=== PATIENT | male | born 1945 | race Caucasian/White ===

== ENCOUNTER → 2016-11-19 | Outpatient (CLI) | payer OTHER ==
[~2016-11-19] MED LIST: ASPI-435 PO; ATOR-26 PO; GLIM1TAB2 PO; HYDR25TA4 PO; LOSA100T65 PO; METF1TAB85 PO; PANT1TAB48 PO; TPRSR/100 PO
[2016-11-19 12:16] LABS: ESTIMATED AVERAGE GLUCOSE 169 mg/dl; HA1C FLAG Normal (Normal)
== END | disposition home or self-care (01) ==
LOC: C.LABBFT 07:36
PROVIDERS: ATTEND Internal Medicine
DX: E11.9 Type 2 diabetes mellitus without complications (principal)

== ENCOUNTER → 2017-03-02 | Day surgery (SDC) | payer OTHER ==
[2017-02-17 12:03] VITALS: Ht 172.7 cm; Wt 86.4 kg
[~2017-03-02] VITALS: Ht 172.7 cm; Wt 86.4 kg
[~2017-03-02] MED LIST changes: -ATOR-26 PO; +LIDOCAINE HCL 2% 2 ML VIAL (20MG/ML) ONE; +PROPOFOL IV EMULSION 10 MG/ML 20 ML VIAL IV ONE
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
[2017-03-02 09:30] VITALS: TEMP 36.5
--- NOTE | 2017-03-02 10:02 | GI REPORT ---
Procedure Date: 03/02/2017 9:31 AM Procedure: Colonoscopy Indications: Screening for colorectal malignant neoplasm Medicines: Monitored Anesthesia Care Complications: No immediate complications. Estimated Blood Loss: Estimated blood loss: none. Procedure: Pre-Anesthesia Assessment: - Prior to the procedure, a History and Physical was performed, and patient medications and allergies were reviewed. The patient's tolerance of previous anesthesia was also reviewed. The risks and benefits of the procedure and the sedation options and risks were discussed with the patient. All questions were answered, and informed consent was obtained. Prior Anticoagulants: The patient has taken aspirin, last dose was 2 days prior to procedure. ASA Grade Assessment: III - A patient with severe systemic disease. After reviewing the risks and benefits, the patient was deemed in satisfactory condition to undergo the procedure. After I obtained informed consent, the scope was passed under direct vision. Throughout the procedure, the patient's blood pressure, pulse, and oxygen saturations were monitored continuously. The Scope was introduced through the anus and advanced to the terminal ileum. The colonoscopy was performed without difficulty. The patient tolerated the procedure well. The quality of the bowel preparation was good. The terminal ileum, ileocecal valve, appendiceal orifice, and rectum were photographed. Findings: A 5 mm polyp was found in the transverse colon. The polyp was sessile. The polyp was removed with a hot snare. Resection and retrieval were complete. Multiple small-mouthed diverticula were found in the sigmoid colon. There was evidence of a prior end-to-end colo-colonic anastomosis in the sigmoid colon. This was patent and was characterized by healthy appearing mucosa. The anastomosis was traversed. Non-bleeding internal hemorrhoids were found during retroflexion. The hemorrhoids were small. Impression: - One 5 mm polyp in the transverse colon, removed with a hot snare. Resected and retrieved. - Diverticulosis in the sigmoid colon. - Patent end-to-end colo-colonic anastomosis, characterized by healthy appearing mucosa. - Non-bleeding internal hemorrhoids. Recommendation: - Resume previous diet. - Continue present medications. - Repeat colonoscopy for surveillance based on pathology results. - Return to primary care physician as previously scheduled. Jerome Harris DO 03/02/2017 10:02:27 AM This report has been signed electronically. Note Initiated On: 03/02/2017 9:31 AM I attest to the content of the Intraoperative Record and orders documented therein, exceptions below
--- NOTE | 2017-03-02 10:05 | Discharge Instructions ---
Endoscopy Patient Instructions Date / Procedure(s) Performed Mar 02, 2017. Colonoscopy Allergy Information Coded Allergies: No Known Allergies (Verified , 02/17/17) Discharge Date / Findings Mar 02, 2017. Diverticulosis Internal hemorrhoids Colon polyp Evidence of prior colo-colonic anastomosis Medication Instructions Stopped Medication(s): stopped ASA and Glucophage Tuesday OK to resume all medications today as prescribed Reported Home Medications Medications Dose Route/Sig Max Daily Dose Days Date Category Hctz (Hydrochlorothiazide) 25 Mg Tab 25 Mg PO QAM 02/17/17 Reported Glimepiride 1 Mg Tab 1 Tab PO QAM 02/17/17 Reported Aspirin 81 (Aspirin) 81 Mg Tab 1 Tab PO QAM 10/16/15 Reported Cozaar (Losartan Potassium) 100 Mg Tab 100 Mg PO QAM 10/16/15 Reported Metformin Hcl Er (Metformin Hcl) 500 Mg Tab 4 Tabs PO QAM 10/16/15 Reported Metoprolol Succinate ER (Metoprolol Succinate) 100 Mg Tabcr 1 Tab PO QAM 10/16/15 Reported Protonix (Pantoprazole) 40 Mg Tab 40 Mg PO QAM 10/16/15 Reported Provider Instructions Activity Restrictions - No exercising or heavy lifting for 24 hours. - Do not drink alcohol the day of the procedure. - Do not drive a car or operate machinery until the day after the procedure. - Do not make any important decisions or sign important papers in 24 hours after the procedure. Following Day: - Return to full activity which may include returning to work/school. Diet Start your diet with liquids and light foods (jello, soup, juice, toast). Then eat your usual diet if not nauseated. Treatment For Common After Affects For mild abdominal pain, bloating, or excessive gas: - Rest - Eat lightly - Lie on right side Follow-Up Information Follow-up with Dr. Graham Lock as scheduled Anesthesia Information What You Should Know You have had a procedure that required some medicine to reduce anxiety and discomfort. This treatment is called moderate sedation. After receiving the treatment, you may be sleepy, but you will be able to breathe on your own. The effects of the treatment may last for several hours. Follow these instructions along with Activity/Diet recommendations noted above: * Do NOT do anything where dizziness or clumsiness would be dangerous. * Rest quietly at home today, then you can be up and about tomorrow. * Have a responsible person stay with you the rest of today. * You may have had an I.V. today. If so, you may take the dressing off later today. Recommendations Call your doctor if: * Trouble breathing * Continuous vomiting for more than 24 hours * Temperature above 101 degrees * Severe abdominal pain or bloating * Pain not relieved by pain medicine ordered * There is increased drainage or redness from any incision * A large amount of rectal bleeding greater than 2-3 tablespoons. (If you had a polyp/s removed or have hemorrhoids, a small amount of blood - from the rectum is to be expected.) * You have any unanswered questions or concerns. IN THE EVENT OF A SERIOUS EMERGENCY, GO TO THE NEAREST EMERGENCY ROOM Your discharge instructions were prepared by provider Jerome Harris. Patient Instructions Signature Page Fabian Mayo Patient (or Guardian) Signature/Date: I have read and understand the instructions given to me by my caregivers. Caregiver/RN/Doctor Signature/Date: The above-named patient and/or guardian has received patient instructions on this date. + Original Patient Signature Page (only) stays with chart. Please make copy for patient.
--- NOTE | 2017-03-02 10:18 | Anesthesiology Progress Note ---
Anesthesia Post Op Note Date & Time Mar 02, 2017 at 10:18 Vital Signs Pain Intensity: 0 Vital Signs Past 12 Hours Date Time Temp Pulse Resp B/P (MAP) Pulse Ox O2 Delivery O2 Flow Rate FiO2 03/02/17 10:03 56 18 124/64 (84) 95 Room Air 03/02/17 09:30 36.5 60 20 134/71 (92) 94 Room Air Notes Mental Status: alert / awake / arousable, participated in evaluation Pt Amnestic to Procedure: Yes Nausea / Vomiting: adequately controlled Pain: adequately controlled Airway Patency, RR, SpO2: stable & adequate BP & HR: stable & adequate Hydration State: stable & adequate Anesthetic Complications: no major complications apparent
[2017-03-02 10:32] VITALS: BP 143/78; PULSE 52; O2SAT 96
== END | disposition home or self-care (01) ==
LOC: C.GI 08:56
PROVIDERS: ATTEND Internal Medicine
DX: Z12.11 Encounter for screening for malignant neoplasm of colon (principal); D12.3 Benign neoplasm of transverse colon; K57.30 Diverticulosis of large intestine without perforation or abscess without bleeding; K64.8 Other hemorrhoids; Z98.0 Intestinal bypass and anastomosis status; I10 Essential (primary) hypertension; E78.00 Pure hypercholesterolemia, unspecified; E11.9 Type 2 diabetes mellitus without complications; K21.9 Gastro-esophageal reflux disease without esophagitis; G47.30 Sleep apnea, unspecified; F17.200 Nicotine dependence, unspecified, uncomplicated; Z79.82 Long term (current) use of aspirin; Z79.84 Long term (current) use of oral hypoglycemic drugs; Z79.899 Other long term (current) drug therapy

== ENCOUNTER → 2017-03-23 | Outpatient (CLI) | payer OTHER ==
[~2017-03-23] MED LIST changes: -LIDOCAINE HCL 2% 2 ML VIAL (20MG/ML) ONE; -PROPOFOL IV EMULSION 10 MG/ML 20 ML VIAL IV ONE
[2017-03-23 12:12] LABS: BASO % 0.4 %; BASO ABS # 0.04 K/uL (0-0.2); COMPLETE YES; EOS % 2.9 %; HEMATOCRIT 39.5 % (42-52); IG% 0.2 %; LYMPH % 25.9 %; LYMPH ABS # 2.81 K/uL (1.2-3.4); MEAN CELL VOLUME 92.3 fL (80-100); MEAN CORPUSCULAR HEMOGLOBIN 29.7 pg (25-34); MEAN CORPUSCULAR HGB CONC 32.2 g/dl (32-36); MEAN PLATELET VOLUME 9.9 fL (7.4-10.4); MONO % 6.5 %; NEUT % 64.1 %; PLATELET COUNT 276 K/uL (130-400); RED BLOOD COUNT 4.28 M/uL (4.7-6.1); WHITE BLOOD COUNT 10.84 K/uL (4.8-10.8)
[2017-03-23 12:24] LABS: URINE APPEARANCE CLEAR (CLEAR); URINE BILIRUBIN NEG (NEG); URINE COLOR YELLOW; URINE EPITHELIAL CELL AUTO 0-5 /lpf (0-5); URINE NITRITE NEG (NEG); URINE SPECIFIC GRAVITY 1.014 (1.000-1.030); UROBILINOGEN NEG (NEG); ZZUR CULT IF INDIC CLEAN CATCH NO
[2017-03-23 12:33] LABS: MANUAL MICROSCOPIC REQUIRED? NO; REVIEW REQ? NO
[2017-03-23 13:58] LABS: ESTIMATED AVERAGE GLUCOSE 151 mg/dl; HA1C FLAG Normal (Normal)
== END | disposition home or self-care (01) ==
LOC: C.LABBFT 07:28
PROVIDERS: ATTEND Internal Medicine
DX: E11.9 Type 2 diabetes mellitus without complications (principal)

== ENCOUNTER → 2017-03-29 | Outpatient (CLI) | payer OTHER ==
[2017-03-29 12:47] LABS: LYME DISEASE AB IGG NEG (NEG); LYME DISEASE AB IGM NEG (NEG)
--- NOTE | 2017-04-05 07:10 | CODING QUERY MEDICAL NECESSITY ---
SUPPORTING DIAGNOSIS NEEDED A supporting diagnosis is required for the test/procedure performed on this patient in order for us to be reimbursed by the patient's insurance. Please provide a supporting diagnosis for the following test/procedure listed below next to the test name along with your signature. *If there is no additional diagnosis for this patient that would support the following test/procedure please document that below next to the test/procedure. Test(s)/Procedure(s) that require a supporting diagnosis: * ([id number]) VITAMIN D ASSAY DIAGNOSIS: DATE OF SERVICE: 03/29/17 Provider Signature: Date: Thank you John Real [facility] Information Management Once completed, please kindly fax back to [phone] For questions please call [phone]
== END | disposition home or self-care (01) ==
LOC: C.LABBFT 11:01
PROVIDERS: ATTEND Internal Medicine
DX: R53.83 Other fatigue (principal)

== ENCOUNTER → 2017-08-10 | Outpatient (CLI) | payer OTHER ==
[~2017-08-10] MED LIST changes: +PANT1TAB3 PO; -PANT1TAB48 PO
[2017-08-10 12:28] LABS: BASO % 0.5 %; BASO ABS # 0.06 K/uL (0-0.2); EOS ABS # 0.36 K/uL (0-0.5); HEMOGLOBIN 13.5 g/dL (14.0-18.0); IG# 0.03 K/uL (0.00-0.02); LYMPH % 23.6 %; LYMPH ABS # 2.88 K/uL (1.2-3.4); MEAN CORPUSCULAR HEMOGLOBIN 30.6 pg (25-34); MEAN CORPUSCULAR HGB CONC 32.9 g/dl (32-36); MEAN PLATELET VOLUME 10.1 fL (7.4-10.4); MONO ABS # 0.73 K/uL (0.11-0.59); NEUT % 66.7 %; NEUT ABS # 8.13 K/uL (1.4-6.5); PLATELET COUNT 273 K/uL (130-400); RED CELL DISTRIBUTION WIDTH CV 14.4 % (11.5-14.5); WHITE BLOOD COUNT 12.19 K/uL (4.8-10.8)
[2017-08-10 12:59] LABS: HEMOGLOBIN A1C 7.2 % (4.5-5.6)
[2017-08-10 13:04] LABS: ALBUMIN 3.5 gm/dl (3.4-5.0); ALT/SGPT 18 U/L (12-78); BLOOD UREA NITROGEN 15 mg/dl (7-18); CALCIUM 9.7 mg/dl (8.5-10.1); CARBON DIOXIDE 27 mmol/L (21-32); CHOLESTEROL 123 mg/dl (0-200); CREATININE 1.04 mg/dl (0.60-1.40); GLUCOSE 150 mg/dl (70-99); POTASSIUM 4.2 mmol/L (3.5-5.1); SODIUM 138 mmol/L (136-145)
[2017-08-10 13:07] LABS: ALKALINE PHOSPHATASE 100 U/L (45-117); AST/SGOT 12 U/L (15-37); LDL CHOLESTEROL CALCULATED 43 mg/dl; TOTAL PROTEIN 6.9 gm/dl (6.4-8.2)
== END | disposition home or self-care (01) ==
LOC: C.LABBFT 07:29
PROVIDERS: ATTEND Internal Medicine
DX: E11.9 Type 2 diabetes mellitus without complications (principal); E78.5 Hyperlipidemia, unspecified; D64.9 Anemia, unspecified

== ENCOUNTER → 2017-12-15 | Outpatient (CLI) | payer OTHER ==
[2017-12-15 12:30] LABS: BASO % 0.5 %; BASO ABS # 0.05 K/uL (0-0.2); EOS % 3.2 %; EOS ABS # 0.33 K/uL (0-0.5); HEMATOCRIT 38.7 % (42-52); HEMOGLOBIN 13.2 g/dL (14.0-18.0); IG# 0.03 K/uL (0.00-0.02); LYMPH % 25.2 %; LYMPH ABS # 2.59 K/uL (1.2-3.4); MEAN CELL VOLUME 90.4 fL (80-100); MEAN CORPUSCULAR HEMOGLOBIN 30.8 pg (25-34); MEAN CORPUSCULAR HGB CONC 34.1 g/dl (32-36); MEAN PLATELET VOLUME 10.1 fL (7.4-10.4); MONO % 6.7 %; MONO ABS # 0.69 K/uL (0.11-0.59); NEUT % 64.1 %; PLATELET COUNT 236 K/uL (130-400); RED CELL DISTRIBUTION WIDTH CV 13.9 % (11.5-14.5); RED CELL DISTRIBUTION WIDTH SD 46.1 fL (36.4-46.3); WHITE BLOOD COUNT 10.29 K/uL (4.8-10.8)
[2017-12-15 12:57] LABS: HEMOGLOBIN A1C 7.8 % (4.5-5.6)
== END | disposition home or self-care (01) ==
LOC: C.LABBFT 07:27
PROVIDERS: ATTEND Internal Medicine
DX: D72.829 Elevated white blood cell count, unspecified (principal); E11.9 Type 2 diabetes mellitus without complications

== ENCOUNTER 2019-11-17 15:13 | Inpatient (IN) ==
[2019-11-17] MEDS ORDERED: ONDANSETRON INJ 2 MG/ML 2 ML VIAL IV STA (15:30)
[2019-11-17] MEDS ORDERED: MoRPHine SULFATE 10 MG/ML CARP/VIAL IV STA ×2 (15:30→16:12)
[2019-11-17] MEDS ORDERED: SODIUM CHLORIDE 0.9% 1000ML 1,000 ML IV ONE (15:30)
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
[2019-11-17 15:58] LABS: iSTAT Creatinine 0.9 mg/dl (0.6-1.3); iSTAT Hemoglobin 13.9 g/dl (14.0-18.0); iSTAT Ionized Calcium 1.18 mmol/l (1.12-1.32); iSTAT Potassium 3.6 mmol/L (3.3-5.0)
[2019-11-17] MEDS ORDERED: IOVERSOL 100ml IV PRN (15:59)
[2019-11-17 16:08] LABS: INR 1.1 (0.9-1.1); Partial Thromboplastin Ratio 1.1; Partial Thromboplastin Time 30.4 Seconds (21.0-31.0)
[2019-11-17 16:11] LABS: Alanine Aminotransferase 17 U/L (12-78); Albumin Level 3.2 gm/dl (3.4-5.0); Aspartate Aminotransferase 15 U/L (15-37); BUN Creatinine Ratio 11.7 (10-20); Blood Urea Nitrogen 12 mg/dl (7-18); Calcium 9.1 mg/dl (8.5-10.1); Carbon Dioxide 26 mmol/L (21-32); Chloride 106 mmol/L (98-107); Creatinine Clr Calc Pharmacy 60.9 ml/min; Est GFR (African American) 82.6; Est GFR (Non-African American) 71.2; Glucose 160 mg/dl (70-99); Lipase 24 U/L (73-393); Potassium 3.6 mmol/L (3.5-5.1); Sodium 136 mmol/L (136-145)
[2019-11-17 16:16] LABS: Albumin Globulin Ratio 0.8 (0.9-2); Alkaline Phosphatase 103 U/L (45-117); Bilirubin,Total 0.9 mg/dl (0.2-1); Total Protein 7.2 gm/dl (6.4-8.2); Troponin I < 0.015 ng/ml (0-0.045)
[2019-11-17 16:22] LABS: Basophils # (auto) 0.04 K/uL (0-0.2); Basophils % (auto) 0.3 %; Eosinophils # (auto) 0.11 K/uL (0-0.5); Eosinophils % (auto) 0.8 %; Hematocrit (blood only) 40.5 % (42-52); Hemoglobin 13.9 g/dL (14.0-18.0); Immature Granulocytes # (auto) 0.04 K/uL (0.00-0.02); Immature Granulocytes % (auto) 0.3 %; Lymphocytes # (auto) 1.81 K/uL (1.2-3.4); Lymphocytes % (auto) 13.9 %; Mean Corpuscular Hemoglobin 31.4 pg (25-34); Mean Corpuscular Hgb Conc 34.3 g/dL (32-36); Mean Corpuscular Volume 91.6 fL (80-100); Mean Platelet Volume 9.9 fL (7.4-10.4); Monocytes % (auto) 4.6 %; Neutrophils # (auto) 10.39 K/uL (1.4-6.5); Neutrophils % (auto) 80.1 %; Platelet Count 214 K/uL (130-400); RDW Coefficient of Variation 12.6 % (11.5-14.5); RDW Standard Deviation 42.4 fL (36.4-46.3); Red Blood Count 4.42 M/uL (4.7-6.1); White Blood Count 12.99 K/uL (4.8-10.8)
--- NOTE | 2019-11-17 16:41 | CT Scan Report ---
CT OF THE ABDOMEN AND PELVIS WITH CONTRAST CLINICAL HISTORY: Severe abdominal pain. Recent GI bleed. COMPARISON STUDY: None. TECHNIQUE: Following IV administration of 93 mL of Optiray-320, axial images of the abdomen and pelvi s were obtained from the lung bases to the proximal femurs. Images were reviewed in the axial, sagitt al, and coronal planes. IV contrast was administered without complication. Automated exposure contro l was utilized for the study. A dose lowering technique was utilized adhering to the principles of A WERO. CT DOSE: 318.73 mGy.cm FINDINGS: Imaged portions of the lower chest demonstrate multiple irregular solid nodules that measur e up to 1.4 cm. A moderate sized hiatal hernia is present. There are are several locules of extralumi nal gas within the upper abdomen, specifically adjacent to the left hemidiaphragm and within the mese ntery. Mesenteric infiltration is noted. Note is made of moderate pancreatic ductal dilatation with p ancreatic glandular atrophy. Ill-defined pancreatic head mass measures approximately 3.1 x 2.4 cm. Th e soft tissue may extend toward the urbano hepatis. There is resultant severe narrowing of the main po rtal vein as well as encasement of portions of the celiac axis. There is no biliary ductal dilatation . There is no pericholecystic infiltration. There is no evidence for a bowel obstruction. Extensive s igmoid diverticulosis is noted. Apparent colonic wall thickening is likely due to underdistention. Th ere is no extraluminal gas within the pelvis. Note is made of a 3.1 cm infrarenal abdominal aortic an eurysm without evidence for rupture. There is no hydronephrosis. Multiple suspected renal cysts are n oted. Several subcentimeter renal lesions are too small to characterize. No suspicious hepatic lesion s are present. A subcentimeter lateral segment hepatic lesion favors a cyst. The spleen and adrenal g lands are unremarkable. Right hip arthroplasty is noted. There is old posttraumatic deformity within the pelvis. A few small suspected peritoneal implants are noted. IMPRESSION: 1. A few punctate foci of extraluminal gas within the upper abdomen. The source for this extraluminal gas is not apparent on this exam. Mild nonspecific mesenteric infiltration which may be related to s evere narrowing of the main portal vein. 2. Findings highly suggestive of pancreatic adenocarcinoma involving the head and neck of the pancrea s with encasement portions of the celiac axis and severe narrowing of the main portal vein. Multiple suspected pulmonary metastases. Suspected tiny peritoneal implants. 3. 3.1 cm infrarenal abdominal aortic aneurysm. 4. Extensive colonic diverticulosis. Sigmoid colon wall thickening is likely due to underdistention h owever acute diverticulitis cannot be excluded on this exam. ACT 112: Negative or not required by law. Electronically signed by: Neo Doss M.D. 11/17/2019 4:40 PM
[2019-11-17] MEDS ORDERED: PIPERACILL/TAZOBAC CONSULT ACTIVE PRN (16:44)
[2019-11-17] MEDS ORDERED: PIPERACILLIN/TAZOBACTAM 4.5 GM/120 ML BAG IV ONE (16:44)
--- NOTE | 2019-11-17 17:19 | Surgery Consultation ---
Date of Consultation November 17, 2019 Assessment & Plan (1) Pancreatic cancer: pt is a 73 year-old male who presents to Er with 4 days history upper and back pain, with some bloody stool, IMP: pancreatic cancer, GI bleeding, recommend to transfer [facility] for further diagnosis and treatment, D/W ER attending, History of Present Illness History of Present Illness CHIEF COMPLAINT: Abdominal pain HPI: Patient is a 73-year-old male who presents the ER for severe abdominal pain. He notes 4 days ago he had another EGD which they took a biopsy. Since then he has been having severe pain which has been worsening. Describes as a 7 out of 10. He notes it will get worse. Any palpation or touching of his abdomen significantly worsens the pain. Rest does improve it slightly. He notes that they gave him a pain shot but that has not been helping. He notes that he has gone to the bathroom about 15 times today and notes the past 3-5 bowel movements have been pure blood. He notes about a quarter of a cup each time. Denies any chest pain or shortness of breath. No dysuria urgency or frequency. I ( Chichi Motta MD ) got a call for consult abdominal pain, I reviewed pt's H/P , labs, CT scan with pt, now pt has no abdominal pain , pt had pancreatic mass biopsy 4 days ago at [facility]. pt denies has any new bloody stool, ROS: See above HPI for pertinent positives & negatives. A total of 10 systems reviewed and were otherwise negative. PAST MEDICAL HISTORY: See Below PAST SURGICAL HISTORY: See Below FAMILY HISTORY: See Below SOCIAL HISTORY: See Below HOME MEDICATIONS: See Below ALLERGIES: See Below Allergies Allergy/AdvReac Type Severity Reaction Status Date / Time No Known Drug Allergies Allergy Verified 11/17/19 16:00 Home Medications Home Medications Medication Instructions Recorded Confirmed Type aspirin [Aspir-81] 81 mg PO QAM 04/30/18 10/30/19 History metoprolol succinate 100 mg PO QAM 04/30/18 10/05/19 History cholecalciferol (vitamin D3) 50 4,000 units PO DAILY tab 06/11/19 10/05/19 History mcg (2,000 unit) tablet nitroglycerin 0.4 mg sublingual 0.4 mg SL Q5M PRN #25 tab 06/11/19 10/05/19 Rx tablet insulin syringe-needle U-100 1 mL #100 ea 08/29/19 Rx 30 gauge x 1/2" blood sugar diagnostic #100 ea 09/11/19 Rx clopidogrel 75 mg PO QAM 09/18/19 10/05/19 History ferrous sulfate 325 mg PO QAM 09/18/19 10/05/19 History hydrochlorothiazide 25 mg PO QAM 09/18/19 10/05/19 History isosorbide mononitrate 30 mg PO QAM 09/18/19 10/05/19 History losartan 100 mg PO QAM 09/18/19 10/05/19 History metformin 2,000 mg PO QAM 09/18/19 10/05/19 History insulin human U-100 NPH-regulr See Rx Instructions SQ BIDM #40 ml 10/04/19 10/05/19 Rx 70-30 mix 100 unit/mL subcutaneous susp lancets #100 ea 10/04/19 Rx pantoprazole 40 mg tablet,delayed 40 mg PO QAM 10/30/19 10/30/19 History release rosuvastatin 5 mg PO QAM 11/17/19 11/17/19 History Patient History Social History Preferred Language: Kazakh Communication Ability: Effective Hearing Ability: Normal Stave And Bolt Equalizer Required: No Beliefs That Will Affect Care: None marital status details: Current Living Situation: Spouse current occupational status: retired Feels Safe at Home: Yes Smoking Status: Current every day smoker Tobacco Type: cigarettes ; Cigarettes Per Day: 15 ; Second Hand Exposure: No ; Hx Alcohol Use: No Hx Substance Use: No caffeine: Yes Seatbelt Use: always Review of Systems Review of Systems: All systems reviewed & are unremarkable except as noted in HPI & below Constitutional: as per Subjective / HPI Eyes: as per Subjective / HPI Ear, Nose, Mouth, Throat: as per Subjective / HPI Respiratory: as per Subjective / HPI Cardiovascular: as per Subjective / HPI Additional Comments: CAD, AAA Gastrointestinal: pancreatic cancer Integumentary: as per Subjective / HPI Neurologic: as per Subjective / HPI Psychiatric: as per Subjective / HPI Endocrine: as per Subjective / HPI Physical Exam Constitutional: WD/WN, vitals as above well developed and well nourished Eyes: PERRL, conjunctivae normal, anicteric sclerae ENMT: external ear and nose normal, oropharynx normal Neck: trachea midline, no thyromegaly Respiratory: normal respiratory effort, lungs clear to auscultation Cardiovascular: RRR, no murmur, no edema Rate/Rhythm: regular rate and regular rhythm Gastrointestinal (Abdomen): Percussion/Palpation: abdomen soft mild tenderness at RUQ, no rebound pain, BS +, no distend Musculoskeletal: no cyanosis or clubbing, extremities motor strength 5/5 Skin: no rashes, warm and dry Neurologic: patellar DTR's 2+ bilat, sensation intact Psychiatric: A+Ox3, euthymic affect Results & Data Vital Signs (Past 12 Hours) Vital Signs Temp Pulse Pulse Resp BP BP Pulse Ox 11/17/19 16:44 60 18 152/69 H 98 11/17/19 16:13 65 16 158/93 H 98 11/17/19 15:54 95 11/17/19 15:19 36.4 C L 78 18 136/82 98 Laboratory Results Abnormal lab results 11/17/19 11/17/19 11/17/19 Range/Units 15:36 15:36 15:46 WBC 12.99 H (4.8-10.8) K/uL RBC 4.42 L (4.7-6.1) M/uL Hgb 13.9 L (14.0-18.0) g/dL POC Hgb 13.9 L (14.0-18.0) g/dl Hct 40.5 L (42-52) % POC Hct 41 L (42-52) % Immature Gran # (Auto) 0.04 H (0.00-0.02) K/uL Neut # (Auto) 10.39 H (1.4-6.5) K/uL Phillips # (Auto) 0.60 H (0.11-0.59) K/uL POC Total CO2 23 L (24-31) mEq/l Glucose 160 H (70-99) mg/dl POC Glucose (other) 161 H (70-99) mg/dl Albumin 3.2 L (3.4-5.0) gm/dl Albumin/Globulin Ratio 0.8 L (0.9-2) Lipase 24 L (73-393) U/L Diagnostic Findings CT DOSE: 318.73 mGy.cm FINDINGS: Imaged portions of the lower chest demonstrate multiple irregular solid nodules that measure up to 1.4 cm. A moderate sized hiatal hernia is present. There are are several locules of extraluminal gas within the upper abdomen, specifically adjacent to the left hemidiaphragm and within the mesentery. Mesenteric infiltration is noted. Note is made of moderate pancreatic ductal dilatation with pancreatic glandular atrophy. Ill-defined pancreatic head mass measures approximately 3.1 x 2.4 cm. The soft tissue may extend toward the urbano hepatis. There is resultant severe narrowing of the main portal vein as well as encasement of portions of the celiac axis. There is no biliary ductal dilatation. There is no pericholecystic infiltration. There is no evidence for a bowel obstruction. Extensive sigmoid diverticulosis is noted. Apparent colonic wall thickening is likely due to underdistention. There is no extraluminal gas within the pelvis. Note is made of a 3.1 cm infrarenal abdominal aortic aneurysm without evidence for rupture. There is no hydronephrosis. Multiple suspected renal cysts are noted. Several subcentimeter renal lesions are too small to characterize. No suspicious hepatic lesions are present. A subcentimeter lateral segment hepatic lesion favors a cyst. The spleen and adrenal glands are unremarkable. Right hip arthroplasty is noted. There is old posttraumatic deformity within the pelvis. A few small suspected peritoneal implants are noted. IMPRESSION: 1. A few punctate foci of extraluminal gas within the upper abdomen. The source for this extraluminal gas is not apparent on this exam. Mild nonspecific mesenteric infiltration which may be related to severe narrowing of the main portal vein. 2. Findings highly suggestive of pancreatic adenocarcinoma involving the head and neck of the pancreas with encasement portions of the celiac axis and severe narrowing of the main portal vein. Multiple suspected pulmonary metastases. Suspected tiny peritoneal implants. 3. 3.1 cm infrarenal abdominal aortic aneurysm. 4. Extensive colonic diverticulosis. Sigmoid colon wall thickening is likely due to underdistention however acute diverticulitis cannot be excluded on this exam.
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
[2019-11-17] MEDS ORDERED: PANTOprazole 80 MG in DEXTROSE 5% 100 ML IV SCH (19:00)
[2019-11-17] MEDS: PANTOprazole 40 MG in DEXTROSE 5% 100 ML IV SCH (19:40)
[2019-11-17] MEDS ORDERED: MoRPHine SULFATE 2 MG/ML CARP IV PRN (20:07)
[2019-11-17] MEDS ORDERED: GLUCAGON FOR INJ 1 MG VIAL SQ PRN (20:07)
[2019-11-17] MEDS ORDERED: GLUCOSE 10 TABS/TUBE PO PRN (20:07)
[2019-11-17] MEDS ORDERED: CARBOHYDRATES FOR HYPOGLYCEMIA PO PRN (20:07)
[2019-11-17] MEDS ORDERED: GLUCOSE 40% GEL 15 GM TUBE PO PRN (20:07)
[2019-11-17] MEDS ORDERED: DEXTROSE 50% 50 ML SYRINGE IV PRN (20:07)
--- NOTE | 2019-11-17 21:19 | Communication Note ---
Date of Service: November 17, 2019 Pt reports he continues to have 6-7/10 abdominal pain minimally improved with 0.5mg morphine IV. On exam abdominal diffusely tender without rigidity. Per pt pain is in the same area and feels similar to his admitting pain, reports that his pain medicine helps a little for ~30 minutes before coming back. he has been recommended for transfer to [facility] for additional management by surgical team. On chart review pt has a history of GIB and pancreatic ca, on admission required 14mg IV morphine for pain control. Added scaled morphine analgesia (2-4mg IV based on pain score) and discussed with nurse to perform an abdominal assessment prior to dosing and call provider if any signs of worsening acute abdomen including rigidity develop. VSS at time of assessment.
[2019-11-17] MEDS: D5NSS + 20MEQ KCL 20 MEQ/1,000 ML BAG IV SCH (21:22)
[2019-11-17] MEDS: MoRPHine SULFATE 4 MG/ML 1 ML CARP\\VIAL IV PRN (21:30)
[2019-11-17 22:07] LABS: Hematocrit (blood only) 36.1 % (42-52); Hemoglobin 12.1 g/dL (14.0-18.0)
[2019-11-17] MEDS: INSULIN ASPART 100 UNITS/ML 3 ML PEN SC SCH (22:45)
[2019-11-17] MEDS: PIPERACILLIN/TAZOBACTAM 3.375 GM in DEXTROSE 5% 100 ML IV SCH (22:46)
[2019-11-18] MEDS: PANTOprazole 40 MG in DEXTROSE 5% 100 ML IV SCH ×5 (00:44→19:51)
[2019-11-18] MEDS: MoRPHine SULFATE 4 MG/ML 1 ML CARP\\VIAL IV PRN ×4 (01:58→21:02)
[2019-11-18] MEDS: PIPERACILLIN/TAZOBACTAM 3.375 GM in DEXTROSE 5% 100 ML IV SCH ×3 (05:27→21:02)
[2019-11-18] MEDS: D5NSS + 20MEQ KCL 20 MEQ/1,000 ML BAG IV SCH ×3 (05:28→21:02)
[2019-11-18 06:05] LABS: Basophils # (auto) 0.04 K/uL (0-0.2); Basophils % (auto) 0.5 %; Eosinophils # (auto) 0.28 K/uL (0-0.5); Eosinophils % (auto) 3.6 %; Hematocrit (blood only) 35.5 % (42-52); Hemoglobin 11.9 g/dL (14.0-18.0); Immature Granulocytes # (auto) 0.01 K/uL (0.00-0.02); Immature Granulocytes % (auto) 0.1 %; Lymphocytes # (auto) 1.71 K/uL (1.2-3.4); Lymphocytes % (auto) 21.9 %; Mean Corpuscular Hemoglobin 31.1 pg (25-34); Mean Corpuscular Hgb Conc 33.5 g/dL (32-36); Mean Corpuscular Volume 92.7 fL (80-100); Mean Platelet Volume 9.4 fL (7.4-10.4); Monocytes # (auto) 0.51 K/uL (0.11-0.59); Monocytes % (auto) 6.5 %; Neutrophils # (auto) 5.25 K/uL (1.4-6.5); Neutrophils % (auto) 67.4 %; Platelet Count 149 K/uL (130-400); RDW Coefficient of Variation 12.8 % (11.5-14.5); RDW Standard Deviation 43.5 fL (36.4-46.3); Red Blood Count 3.83 M/uL (4.7-6.1)
[2019-11-18] MEDS: INSULIN ASPART 100 UNITS/ML 3 ML PEN SC SCH ×3 (08:24→21:03)
[2019-11-18] MEDS: MoRPHine SULFATE 2 MG/ML CARP IV PRN ×2 (08:26→16:21)
[2019-11-18] MEDS ORDERED: Nursing to Pharmacy Communication ONE ×2 (09:10→14:56)
[2019-11-18] MEDS ORDERED: INSULIN ASPART 100 UNITS/ML 3 ML PEN SC SCH (12:00)
--- NOTE | 2019-11-18 12:01 | Surgery Progress Note ---
Date of Service pt feels much better, no significant abdominal pain, no fever, November 18, 2019 Assessment & Plan (1) Pancreatic cancer: pt is a 73 year-old male who presents to Er with 4 days history upper and back pain, with some bloody stool, IMP: pancreatic cancer, GI bleeding, recommend to transfer [facility] for further diagnosis and treatment, D/W ER attending, 11/18/2019 11:59AM doing better, no abdominal pain, most likely the pain is caused by pancreatic tumor, pt can be discharged today, F/U his [facility] surgeon for pancreatic mass biopsy, sign off today, please call with questions, thanks, Review of Systems Constitutional: as per Subjective / HPI Eyes: as per Subjective / HPI Ear, Nose, Mouth, Throat: as per Subjective / HPI Respiratory: as per Subjective / HPI Cardiovascular: as per Subjective / HPI Additional Comments: CAD, AAA Gastrointestinal: pancreatic cancer Integumentary: as per Subjective / HPI Neurologic: as per Subjective / HPI Psychiatric: as per Subjective / HPI Endocrine: as per Subjective / HPI Physical Exam Constitutional: WD/WN, vitals as above well developed and well nourished Eyes: PERRL, conjunctivae normal, anicteric sclerae ENMT: external ear and nose normal, oropharynx normal Neck: trachea midline, no thyromegaly Respiratory: normal respiratory effort, lungs clear to auscultation Cardiovascular: RRR, no murmur, no edema Rate/Rhythm: regular rate and regular rhythm Gastrointestinal (Abdomen): Percussion/Palpation: abdomen soft NT, ND, BS + Musculoskeletal: no cyanosis or clubbing, extremities motor strength 5/5 Skin: no rashes, warm and dry Neurologic: patellar DTR's 2+ bilat, sensation intact Psychiatric: A+Ox3, euthymic affect Results & Data Vital Signs (Past 12 Hours) Vital Signs Temp Pulse Pulse Resp BP Pulse Ox 11/18/19 11:00 36.5 C 56 L 132/72 97 11/18/19 07:33 52 L 11/18/19 07:25 36.6 C 61 18 131/62 97 11/18/19 03:15 36.5 C 53 L 20 118/68 95
--- NOTE | 2019-11-18 22:30 | Hospitalist Progress Note ---
Date of Service November 18, 2019 Assessment & Plan (1) Acute GI bleeding: likely related to perf from EGD on 11/12 ([facility]) noted on CTAP Gen surg eval in ED, planning to monitor for now Hb gradually decreasing, but clinically he has no longer had hematoquezia. Surgeon recommended either transfer or discharge. Patient currently is clinically stable will monitor for 24 hours and recheck hemoglobin in AM. Protonix drip (2) Pancreatic cancer: Ongoing work up Having issues with pain control States oxycodone is not helping at all and causing constipation Patient continues to require multiple doses of morphine. (3) CAD (coronary artery disease): aspirin/plavix s/p stent on 05/2019 Holding given above will likely restart plavix and continue to hold aspirin. (4) Diabetes mellitus: SSI PRN A1c 8.7 (5) Hypertension: Holding home meds (6) Hyperlipidemia: Holding home meds (7) Tobacco abuse: Has been working towards cessation, down to less than 1/2ppd Declines need for patch (8) Sleep apnea: States "that's resolved" No current tx (9) DVT prophylaxis: SCDs given above Admission and Anticipated Discharge Date Admission Date: November 17, 2019 Subjective 73 yo male reports feeling well this morning. However, after initiating his lunch, he had some pain in his abdomen. Patient had episode of heamtoquezia prior to arriving to the hospital. He states this has not been the case here. Review of Systems Review of Systems: All systems reviewed & are unremarkable except as noted in HPI & below Physical Exam Physical Exam: Constitutional: WD/WN, vitals as above Eyes: normal visual monroy by confrontation and + anicteric sclerae Neck: normal visual inspection and trachea midline Respiratory: normal respiratory effort, lungs clear to auscultation Cardiovascular: Rate/Rhythm: regular rate and regular rhythm Gastrointestinal (Abdomen): Inspection/Auscultation: + abdomen distended Percussion/Palpation: + abdomen tender and abdomen soft, no signs of peritonitis Musculoskeletal: Head/Neck/Chest: normocephalic and head atraumatic negative for edema, peripheral pulses intact Skin: no rashes, warm and dry Neurologic: awake; not confused Speech / Cognition: normal speech Psychiatric: A+Ox3, euthymic affect Results & Data Results & Data ([facility]) Vital Signs (Past 12 Hours) Vital Signs Temp Pulse Pulse Resp BP Pulse Ox 11/18/19 18:57 36.9 C 70 18 135/64 98 11/18/19 15:06 58 L 11/18/19 14:46 36.7 C 58 L 20 148/77 H 98 11/18/19 11:00 36.5 C 56 L 132/72 97 PG Care Time/CCT Total # of Minutes Spent Total Time Spent with Patient: Total time spent is greater than 50% in coordination of care (as documented) at patient's floor/unit and/or counseling patient: Coding Level of Care Code 57785 Subseq Hosp Care Lvl 3 Diagnoses Acute GI bleeding K92.2 Pancreatic cancer C25.9 CAD (coronary artery disease) I25.10 Diabetes mellitus E11.9 Hypertension I10 Hypertension type: essential hypertension Hyperlipidemia E78.5 Tobacco abuse Z72.0 Sleep apnea G47.30 DVT prophylaxis Z29.9 Time Spent (min) 35 (1) Hypertension Hypertension type: essential hypertension Qualified Code(s): I10 - Essential (primary) hypertension
[2019-11-19] MEDS: PANTOprazole 40 MG in DEXTROSE 5% 100 ML IV SCH ×5 (00:38→21:25)
[2019-11-19] MEDS: MoRPHine SULFATE 2 MG/ML CARP IV PRN ×5 (00:42→20:14)
[2019-11-19] MEDS: MoRPHine SULFATE 4 MG/ML 1 ML CARP\\VIAL IV PRN ×2 (03:08→08:23)
[2019-11-19] MEDS: D5NSS + 20MEQ KCL 20 MEQ/1,000 ML BAG IV SCH ×3 (04:55→20:17)
[2019-11-19 05:55] LABS: Estimated Average Glucose 203 mg/dl; Hemoglobin A1C 8.7 % (4.5-5.6)
[2019-11-19] MEDS: PIPERACILLIN/TAZOBACTAM 3.375 GM in DEXTROSE 5% 100 ML IV SCH (06:04)
[2019-11-19 06:27] LABS: Creatinine Clr Calc Pharmacy 58.1 ml/min; Est GFR (Non-African American) 67.3
[2019-11-19] MEDS: INSULIN ASPART 100 UNITS/ML 3 ML PEN SC SCH ×4 (08:27→20:18)
[2019-11-19 10:14] LABS: Basophils # (auto) 0.03 K/uL (0-0.2); Basophils % (auto) 0.4 %; Eosinophils # (auto) 0.19 K/uL (0-0.5); Eosinophils % (auto) 2.8 %; Hematocrit (blood only) 34.4 % (42-52); Hemoglobin 11.6 g/dL (14.0-18.0); Immature Granulocytes # (auto) 0.01 K/uL (0.00-0.02); Immature Granulocytes % (auto) 0.1 %; Lymphocytes # (auto) 1.46 K/uL (1.2-3.4); Lymphocytes % (auto) 21.2 %; Mean Corpuscular Hemoglobin 31.2 pg (25-34); Mean Corpuscular Hgb Conc 33.7 g/dL (32-36); Mean Corpuscular Volume 92.5 fL (80-100); Mean Platelet Volume 9.8 fL (7.4-10.4); Monocytes # (auto) 0.44 K/uL (0.11-0.59); Monocytes % (auto) 6.4 %; Neutrophils # (auto) 4.76 K/uL (1.4-6.5); Neutrophils % (auto) 69.1 %; Platelet Count 142 K/uL (130-400); RDW Coefficient of Variation 12.9 % (11.5-14.5); RDW Standard Deviation 43.5 fL (36.4-46.3); Red Blood Count 3.72 M/uL (4.7-6.1); White Blood Count 6.89 K/uL (4.8-10.8)
[2019-11-19] MEDS ORDERED: fentaNYL 12 MCG/HR TDSY TD SCH (10:45)
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
[2019-11-19] MEDS: CLOPIDOGREL BISULFATE 75 MG TAB PO SCH (11:35)
[2019-11-19] MEDS: POLYETHYLENE (MIRALAX) 17 GM PACK PO SCH (11:36)
[2019-11-19] MEDS: CHECK FENTANYL PATCH PLACEMENT SCH ×2 (15:58→23:52)
[2019-11-19] MEDS: AMOXICILLIN/CLAVULANATE 875 MG TAB PO SCH (16:01)
--- NOTE | 2019-11-19 22:50 | Hospitalist Progress Note ---
Date of Service November 19, 2019 Assessment & Plan (1) Acute GI bleeding: likely related to perf from EGD on 11/12 ([facility]) noted on CTAP Gen surg eval in ED, planning to monitor for now Hb gradually decreasing, but clinically he has no longer had hematoquezia. Will monitor for another day, GI consulted, no further intervention at this time. Surgeon recommended either transfer or discharge. Protonix drip. Will continue antibiotics to continue a course 7 days, given the free air in the CT scan and unknown origin. transitioned zosyn to augmentin. (2) Pancreatic cancer: Ongoing work up Having issues with pain control Main reason why patient will not be discharged today, will need to get pain under control. Placed on fentanyl patch. hopefully, this decreases frequency of morphine. (3) CAD (coronary artery disease): aspirin/plavix s/p stent on 05/2019 restarted plavix (on 11/19) due to concern over stent closing. D/W GI, they are agreeable. Will hold ASA. 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 (4) Diabetes mellitus: SSI PRN A1c 8.7 (5) Hypertension: Holding home meds (6) Hyperlipidemia: Holding home meds (7) Tobacco abuse: Has been working towards cessation, down to less than 1/2ppd Declines need for patch (8) Sleep apnea: States "that's resolved" No current tx (9) DVT prophylaxis: SCDs given above Admission and Anticipated Discharge Date Admission Date: November 17, 2019 Subjective Patient continues to have periumbilical and right flank abdominal pain. He states it is not related with his eating and is essentially constant as it occurs through. He states his home pain medications do not help. Review of Systems Review of Systems: All systems reviewed & are unremarkable except as noted in HPI & below Physical Exam Physical Exam: Constitutional: WD/WN, vitals as above Eyes: normal visual monroy by confrontation and + anicteric sclerae Neck: normal visual inspection and trachea midline Respiratory: normal respiratory effort, lungs clear to auscultation Cardiovascular: Rate/Rhythm: regular rate and regular rhythm Gastrointestinal (Abdomen): Inspection/Auscultation: + abdomen distended Percussion/Palpation: + abdomen tender near umbilicus and on the right side, and abdomen soft, no signs of peritonitis; no RUQ tenderness Musculoskeletal: Head/Neck/Chest: normocephalic and head atraumatic negative for edema, peripheral pulses intact Skin: no rashes, warm and dry Neurologic: awake; not confused Speech / Cognition: normal speech Psychiatric: A+Ox3, euthymic affect Results & Data Results & Data ([facility]) Vital Signs (Past 12 Hours) Vital Signs Temp Pulse Pulse Resp BP BP Pulse Ox 11/19/19 19:26 36.6 C 63 18 182/67 H 165/85 H 100 11/19/19 15:49 58 L 11/19/19 15:08 37.0 C 61 20 169/70 H 100 11/19/19 12:34 36.6 C 59 L 18 162/68 H 98 PG Care Time/CCT Total # of Minutes Spent Total Time Spent with Patient: Total time spent is greater than 50% in coordination of care (as documented) at patient's floor/unit and/or counseling patient: Coding Level of Care Code 56015 Subseq Hosp Care Lvl 3 Diagnoses Acute GI bleeding K92.2 Pancreatic cancer C25.9 CAD (coronary artery disease) I25.10 Diabetes mellitus E11.9 Hypertension I10 Hypertension type: essential hypertension Hyperlipidemia E78.5 Tobacco abuse Z72.0 Sleep apnea G47.30 DVT prophylaxis Z29.9 Time Spent (min) 35 (1) Hypertension Hypertension type: essential hypertension Qualified Code(s): I10 - Essential (primary) hypertension
[2019-11-20] MEDS: PANTOprazole 40 MG in DEXTROSE 5% 100 ML IV SCH ×3 (02:15→14:26)
[2019-11-20] MEDS: MoRPHine SULFATE 2 MG/ML CARP IV PRN ×3 (02:15→10:14)
[2019-11-20] MEDS: D5NSS + 20MEQ KCL 20 MEQ/1,000 ML BAG IV SCH ×2 (04:06→14:26)
[2019-11-20 07:11] LABS: Creatinine Clr Calc Pharmacy 64.6 ml/min; Est GFR (African American) 88.8; Est GFR (Non-African American) 76.6
[2019-11-20 07:38] LABS: Hematocrit (blood only) 34.4 % (42-52); Hemoglobin 12.1 g/dL (14.0-18.0); Mean Corpuscular Hemoglobin 32.5 pg (25-34); Mean Corpuscular Hgb Conc 35.2 g/dL (32-36); Mean Corpuscular Volume 92.5 fL (80-100); Platelet Count 139 K/uL (130-400); RDW Coefficient of Variation 12.7 % (11.5-14.5); Red Blood Count 3.72 M/uL (4.7-6.1)
[2019-11-20] MEDS: AMOXICILLIN/CLAVULANATE 875 MG TAB PO SCH (08:41)
[2019-11-20] MEDS: CLOPIDOGREL BISULFATE 75 MG TAB PO SCH (08:42)
[2019-11-20] MEDS: POLYETHYLENE (MIRALAX) 17 GM PACK PO SCH (08:42)
[2019-11-20] MEDS: CHECK FENTANYL PATCH PLACEMENT SCH (08:42)
[2019-11-20] MEDS: INSULIN ASPART 100 UNITS/ML 3 ML PEN SC SCH ×2 (08:43→12:24)
--- NOTE | 2019-11-20 10:14 | Gastroenterology Progress Note ---
Date of Service November 20, 2019 Assessment & Plan (1) Acute GI bleeding: Rectal bleeding likely been by hemorrhoidal or other outlet bleeding (in light of timing with constipation and passing a firm BM). Because it has stopped, would defer repeat endoscopy. Would consider colonoscopy if further rectal bleeding occurs. (2) Pancreatic cancer: FNA positive for adeno carcinoma. Will message Dr. Epps's office (oncology) notifying them of pt's anticipated dc today and ask for ABEL rescheduling of appt. (3) Constipation: Recommend BID Miralax and use Dulcolax if no BM in 24 hrs. Admission and Anticipated Discharge Date Admission Date: November 17, 2019 Supervising Physician Co-Signing Physician Notes Attg add: Late entry for pt: I interviewed and examined pt, reviewed chart and labs. Pt with cessation of rectal bleeding. No further questions. Subjective Mr. Mayo is a 73-year-old male with 3 cm pancreatic neck adenocarcinoma, CT here on admission with question lung mets and new small peritoneal implants. Underwent EUS in [place] with FNA pancreas and celiac plexus block on 11/12. Prelim path with adenocarcinoma. He was admitted on 11/16 for rectal bleeding. No bleeding after arrival. Hb Stable. BN normal. Pain much better controlled today. Pt sitting up on side of bed, taking notes. Tells me he doesn't want chemo and doesn't want to be a burden. Willing for surgery. Initial onc eval appt pending (was yesterday but missed appt due to admission). Review of Systems Review of Systems: ROS: Gen: Denies weakness, no fevers, + weight loss Eyes: No eye redness, or pain, no recent vision changes Resp: No SOB, no cough Cardio: No palpitations/irregular beats, no chest pain GI: See HPI, No nausea/vomiting : Denies pain on urination Skin: No jaundice, itching or new rashes Physical Exam Constitutional: WD/WN, vitals as above + thin Eyes: PERRL, conjunctivae normal, anicteric sclerae ENMT: external ear and nose normal, oropharynx normal Neck: trachea midline, no thyromegaly Respiratory: normal respiratory effort, lungs clear to auscultation Cardiovascular: RRR, no murmur, no edema Gastrointestinal (Abdomen): Inspection/Auscultation: abdomen normal to inspection; abdomen not distended Percussion/Palpation: + abdomen tender (diffusely, improved compared to yesterday) and abdomen soft Musculoskeletal: no cyanosis or clubbing, extremities motor strength 5/5 Skin: no rashes, warm and dry no jaundice Neurologic: PERRL, EOMI, accommodation nl, no face palsy, no dysarthria Psychiatric: A+Ox3, euthymic affect Lymphatic: no cervical or axillary lymphadenopathy Results & Data ([facility]) Vital Signs (Past 12 Hours) Vital Signs Temp Pulse Pulse Resp BP Pulse Ox 11/20/19 07:41 36.5 C 62 20 169/69 H 93 11/20/19 07:16 66 11/20/19 03:27 36.5 C 64 19 137/62 97 11/20/19 00:00 53 L 11/19/19 22:52 36.7 C 62 18 155/76 H 98
[2019-11-20 11:42] VITALS: PULSE 102; TEMP 97.9; O2SAT 91
[2019-11-20 13:04] VITALS: BP 182/67
--- NOTE | 2019-11-20 17:13 | Discharge Summary ---
Date of Service November 20, 2019 Admission HPI Per Admitting Provider 73 y/o M c/o abd pain and BRBPR. Pt states he had an EGD on 11/12 at [facility] for ongoing work up of pancreatic cancer. He states that he has had abd pain and BRBPR since that time. He states his pain and bleeding are getting worse. He has had about 15 bowel movements yesterday and today, the last few of which were all blood. He has not passed any blood since coming to the ED. He had morphine in the ED and this is helping his pain. Pt has been able to eat with this. He states that his appetite is generally good, but he has lost 25 lbs in the last 8 months. He states his general abd pain has been getting worse over the last 2 months. He was started on oxycodone but this is not helping at all and until he started passing blood, was having worsening constipation. Pt denies fever, SOB, chest pain, n/v LE pain or swelling. This was pt's third EGD. He denies issues with the prior 2 EGDs. Pt was seen in the ED by gen surg who feels it best to monitor pt overnight. Principal Diagnosis post procedural pancreatic pain / free air (clinically improving) Discharge Exam vitals noted aao pleasant nad heent nc at mmm breathing unlabored no accessory muscles good effort no respiratory distress no conversational dyspnea abd soft nd nt no masses ext no cyanosis Discharge Data Allergies Allergy/AdvReac Type Severity Reaction Status Date / Time No Known Drug Allergies Allergy Verified 11/17/19 16:00 Consultations 11/17/19 17:03 Consult General Surgery Stat 11/17/19 17:28 ED Decision to Admit Stat 11/17/19 17:37 ED Decision to Admit Stat 11/17/19 20:07 Consult Case Management - Discharge Planning Routine Consult General Surgery Routine 11/18/19 15:58 Consult Gastroenterology Routine 11/19/19 10:16 Consult Gastroenterology Routine 11/20/19 12:18 Consult Health Information Management Routine Ordered Studies 11/17/19 15:30 CT abd pelvis IV con only Stat Hospital Course (1) Acute GI bleeding: given no decompensation from peritonitis, given no hemodynamic instability, given no drop in Hgb, and given that bleeding quickly resolved - agree w GI more suspicious that this was more likely hemorrhoidal than UGI -resolved, Hgb stable. stable for home -bowel regimen Free air present on admission likely from biopsy - seen by GI and surgery - initially with concern on situation and possibly requiring transfer --> but stabilized so quickly and pain resolved. treated with zosyn --> augmentin - finish out course of augmentin, otherwise outpt f/u (2) Pancreatic cancer: biopsy returned as adenocarcinoma (per GI), PET done (per pt, although i am unable to directly access results) and CT here concerning for invasion and mets (both lung and peritoneal) -had ellie discussions about this with pt - and that more than likely treatment would be in a palliative model and discussed what we usually see with progression and end-of-life issues with pancreatic cancer (he inquired about [facility] - and i placed referral in process through their multidisciplinary pancreatic team triage since there could certainly be trials or cutting-edge modalities not readily available elsewhere, although d/w pt given CT findings i sadly doubt this will be the case) -answered all questions to the best of my ability; offered to call family since visitors are not allowed due to COVID19 pandemic, but he related "that's my job" -offered empathy and support as best as the situation would allow; to have outpt eval and discuss treatment options w oncology kait ---> pain control w fentanyl patch and PO dilauded (had hydrocodone at home but noted it was not helping and was causing constipation --> change to PO dilauded, not to take both) ---bowel regimen with miralax (see instructions) (3) CAD (coronary artery disease): stenting 06/12 - currently on dual antiplatelets - since bleeding resolved and most likely hemorrhoidal - can continue home regimen (4) Diabetes mellitus: A1c 8.7 (5) Hypertension: home on home meds (6) Hyperlipidemia: continue home meds (7) Tobacco abuse: Has been working towards cessation, down to less than 1/2ppd Declines need for patch (8) Sleep apnea: has no current outpatient tx (9) DVT prophylaxis: SCDs given above Total Time Total Time Spent Total Time Spent (In Minutes): >30 Discharge Plan Discharge Items Patient Disposition: Home - Self-Care Reason For Visit: PERF S/P EGD Discharge Diagnosis: abdominal pain - see below Activity: Resume your previous activity Non-emergency contact: Primary Care Provider and Oncologist Call non-emergency contact if: you have any medication questions, your symptoms worsen, your pain is not controlled and your pain is worsening Follow-up/Referrals: Jonathan Lock MD [Primary Care Provider] - Mirna Epps MD [Hospitalist] - 11/21/19 12:45 pm (Please, follow up at [facility] with Dr. Epps on TuesdayNovember 20 at 12:45 pm. *The office is located at [address] [place] [address] in [place]. If you need to change this appointment, call the office at [phone].) Diet: Carb Consistent or DM2 Addtl Attending Provider Instructions: abdominal pain -this appears to have been related to the biopsy as well as surrounding inflamm ation and possibly mild infection, and fortunately it has gotten better well. we had you on IV antibiotics initially and switched to oral - which has gone well - and we will complete a 10 day course of antibiotics with the augmentin (amoxicillin clavulanate) that you're on right now -- next dose tonight -because the pain also likely relates to the cancer itself, we'll continue with a pain regimen to try to help quell and stay ahead of what you're feeling: -fentanyl (duragesic) - this is a patch with a very potent pain medicine in it. right now we've got you at the lowest dose (12mcg) -- this can be increased if you need. it is a patch that stays on for 72 hours before changing it, so it's best to write the date on the patch when you put it on so that you don't forget. it often takes a patch or so until the medication truly "gets up to speed" so relief may increase from this over the next day or two -in addition to the patch, we'll use an oral pain medicine (dilauded, hydromorphone) that you can take up to every four hours as needed for pain that is on top of what the patch is able to cover - it's a pretty potent medication, so we'll start at a 2mg dosing and see how that works - if it's not enough, then Dr Lock can increase it to 4mg if you need. THIS IS REPLACING THE OXYCODONE THAT YOU SAID WAS NOT HELPING AT ALL - PLEASE DO NOT TAKE BOTH IN THE SAME 24 HOUR PERIOD A RISK OF ACCIDENTAL OVERDOSE WOULD BE QUITE HIGH!! ---->narcotics all tend to be pretty constipating, so i would recommend a proactive approach in this regard - use miralax (polyethylene glycol) - which is a potent stool softener - to a goal of having one bowel movement a day. a "typical dose" of one capful (17 grams) is basically on the low-end of the spectrum (contrasted with about 12 capfuls in a row being like a bowel prep for a colonoscopy) -- most people on chronic narcotic regimens will find themselves in the neighborhood of 3 capfuls a day, [id number]. as a reasonable rule, dose today's amount based on yesterday's bowel movement; and also if you've taken 5 capfuls in a day without any bowel movement it would be time to call Dr Lock for further instructions -while the fentanyl and hydromorphone are the "big guns" as far as pain goes, people will often get more relief than they'd expect out of a steady dosing of tylenol (acetaminophen) 500mg to 650mg three times a day (since your liver is not inflamed you could safely take as much as 2000mg of acetaminophen in a 24hr period to assist in pain control) -for now since you had the bleeding when you first arrived, we'd recommend holding off on any pain medicines that have a blood-thinner quality to them (ie aspirin as well as any anti-inflammatory such as ibuprofen, alleve, naproxen, et c) -- as time goes by if there is no recurrence of bleeding and you need something else as an "assist" in pain control it is possible that an anti- inflammatory could be introduced with physician guidance and oversight pancreatic cancer -unfortunately as we discussed, with the information i have available (pasted in below for you to be able to have easy access to, and also on the patient portal) things look quite worrisome. after we talked, i was able to learn from gastroenterology that the biopsy done from the endoscopic ultrasound did show an adenocarinoma (the most expected finding for a pancreatic cancer). when there is a proven pancreatic cancer with CT findings showing invasion of the cancer around local blood vessels (where the CT references extension towards the urbano hepatis and narrowing of the portal veins and encasement of the celiac axis) and more distant spread (where the CT references suspected pulmonary metastases and peritoneal implants) it is very concerning that things are invasive enough that "cure" is unlikely - and treatment will more than likely be geared more towards a palliative (buy time, alleviate symptoms) approach. I do not have access to the PET scan as of this writing, but i suspect it likely shows findings similar to what we are seeing on your CT scan. as we discussed, there is a lot that can be done at this point, but the biggest questions will center on what should be done (ie what has the best chances of giving you benefit more than harm) -- i suspect that the oncologist will talk with you about the pro's and con's of different chemotherapy type options, and that radiation therapy likely would be recommended as well. realizing that unless they see things completely differently than what i am able to see, i would recommend you make your decisions in light of what sounds the best to you in an unfortunately terrible situation. Because this is an area of constant research, and there will always be new de velopments that we aren't always immediately abreast of, I have started the referral process (you're in the triage phase right now) with [facility] multidisciplinary pancreatic team --> I have asked that all your tests/studies be faxed to them ([phone]) --- we don't have direct access to the PET scan or biopsy results in this computer record system, so I give you the fax number to help facilitate things with the [facility] as well. they said that a triage member would call you to discuss next steps about 24-48 hours after they have all the information, but if you feel at all like things are "in limbo" the pancreatic team main number is [phone] CT scan report (again, also available on the [facility] portal; i would suspect your PET scan and biopsy results should be on the [facility] patient portal as well) CT OF THE ABDOMEN AND PELVIS WITH CONTRAST CLINICAL HISTORY: Severe abdominal pain. Recent GI bleed. COMPARISON STUDY: None. TECHNIQUE: Following IV administration of 93 mL of Optiray-320, axial images of the abdomen and pelvis were obtained from the lung bases to the proximal femurs. Images were reviewed in the axial, sagittal, and coronal planes. IV contrast was administered without complication. Automated exposure control was utilized for the study. A dose lowering technique was utilized adhering to the pr inciples of [place]. CT DOSE: 318.73 mGy.cm FINDINGS: Imaged portions of the lower chest demonstrate multiple irregular solid nodules that measure up to 1.4 cm. A moderate sized hiatal hernia is pre sent. There are are several locules of extraluminal gas within the upper abdomen, specifically adjacent to the left hemidiaphragm and within the mesentery. Mesenteric infiltration is noted. Note is made of moderate pancreatic ductal dilatation with pancreatic glandular atrophy. Ill-defined pancreatic head mass measures approximately 3.1 x 2.4 cm. The soft tissue may extend toward the urbano hepatis. There is resultant severe narrowing of the main portal vein as well as encasement of portions of the celiac axis. There is no biliary ductal dilatation. There is no pericholecystic infiltration. There is no evidence for a bowel obstruction. Extensive sigmoid diverticulosis is noted. Apparent colonic wall thickening is likely due to underdistention. There is no extraluminal gas within the pelvis. Note is made of a 3.1 cm infrarenal abdominal aortic aneurysm without evidence for rupture. There is no hydronephrosis. Multiple suspected renal cysts are noted. Several subcentimeter renal lesions are too small to characterize. No suspicious hepatic lesions are present. A subcentimeter lateral segment hepatic lesion favors a cyst. The spleen and adrenal glands are unremarkable. Right hip arthroplasty is noted. There is old posttraumatic deformity within the pelvis. A few small suspected peritoneal implants are noted. IMPRESSION: 1. A few punctate foci of extraluminal gas within the upper abdomen. The source for this extraluminal gas is not apparent on this exam. Mild nonspecific mesenteric infiltration which may be related to severe narrowing of the main portal vein. 2. Findings highly suggestive of pancreatic adenocarcinoma involving the head and neck of the pancreas with encasement portions of the celiac axis and severe narrowing of the main portal vein. Multiple suspected pulmonary metastases. Suspected tiny peritoneal implants. 3. 3.1 cm infrarenal abdominal aortic aneurysm. 4. Extensive colonic diverticulosis. Sigmoid colon wall thickening is likely due to underdistention however acute diverticulitis cannot be excluded on this exam. Pending Studies at Discharge: No Stand-Alone Forms: My [facility], Smoking Cessation Medications and DC Order Prescriptions: New fentanyl 12 mcg/hr patch 72 hour 1 patch TD Q72H Qty: 5 RF: 0 amoxicillin-pot clavulanate [Augmentin] 875-125 mg Tablet 1 tab PO BIDM Qty: 14 RF: 0 hydromorphone 2 mg tablet 2 mg PO Q6H PRN (Reason: pain) Qty: 60 RF: 0 Continued cholecalciferol (vitamin D3) 2,000 unit tablet 4,000 units PO DAILY RF: 0 (DME) insulin syringe-needle U-100 [BD Insulin Syringe Ultra-Fine] 1 mL 30 gauge x 1/2" syringe See Rx Instructions .ROUTE .MEDSUPPLY Qty: 100 RF: 5 (DME) OneTouch Verio Strip See Rx Instructions .ROUTE .MEDSUPPLY Qty: 100 RF: 5 Novolin 70/30 U-100 Insulin 100 unit/mL (70-30) suspension See Rx Instructions SQ BIDM Qty: 40 RF: 3 (DME) lancets [OneTouch UltraSoft Lancets] Misc See Rx Instructions .ROUTE .MEDSUPPLY Qty: 100 RF: 5 pantoprazole 40 mg tablet,delayed release (DR/EC) 40 mg PO QAM RF: 0 nitroglycerin 0.4 mg tablet, sublingual 0.4 mg SL Q5M PRN (Reason: chest pain) Qty: 25 RF: 5 metoprolol succinate 100 mg tablet extended release 24 hr 100 mg PO QAM RF: 0 aspirin [Aspir-81] 81 mg Tablet,Delayed Release (Dr/Ec) 81 mg PO QAM RF: 0 Hold Instructions: until ulcer vs pancreatitis ruled out isosorbide mononitrate 30 mg Tablet Extended Release 24 Hr 30 mg PO QAM RF: 0 clopidogrel 75 mg tablet 75 mg PO QAM RF: 0 hydrochlorothiazide 25 mg tablet 25 mg PO QAM RF: 0 ferrous sulfate 325 mg (65 mg iron) tablet,delayed release (DR/EC) 325 mg PO QAM RF: 0 losartan 100 mg tablet 100 mg PO QAM RF: 0 metformin 500 mg tablet extended release 24 hr 2,000 mg PO QAM RF: 0 rosuvastatin 5 mg tablet 5 mg PO QAM RF: 0 Discharge Orders: Discharge Order (Routine); Ordered 04/28/20 Ordered By: Rui Gross Admission Data Admit Date/Time: 11/17/19 19:02 Attending Provider: Rui Gross Admit Provider: Aidee Palacios Primary Care Provider: Jonathan Lock Other Providers: Chichi Motta ; Aidee Palacios ; Sebas Diehl ; Denise Guzman ; Ino Escobedo Other Interventions: Discharge Summary Assessment (RN) Last Done: 11/20/19 13:02 DC Date/Time DO NOT enter until pt leaves facility: 11/20/19 14:25 Coding Level of Care Code D/C Day Management >30 mins Diagnoses Acute GI bleeding K92.2 Pancreatic cancer C25.9 CAD (coronary artery disease) I25.10 Diabetes mellitus E11.9 Hypertension I10 Hypertension type: essential hypertension Hyperlipidemia E78.5 Tobacco abuse Z72.0 Sleep apnea G47.30 DVT prophylaxis Z29.9
== END 2019-11-20 14:25 | disposition home or self-care (01) | DRG 394 ==
LOC: ED 15:13 → SUATTDRO 19:02 → 2N 19:02

== ENCOUNTER 2020-02-14 07:50 | Observation (INO) ==
[2020-02-14] MEDS ORDERED: MoRPHine SULFATE 2 MG/ML CARP IV STA (08:04)
[2020-02-14] MEDS ORDERED: ACETAMINOPHEN 1,000 MG/100 ML VIAL IV STA (08:24)
[2020-02-14] MEDS ORDERED: fentaNYL 25 MCG/HR TDSY TD STA (08:25)
[2020-02-14 08:26] LABS: Basophils # (auto) 0.02 K/uL (0-0.2); Basophils % (auto) 0.2 %; Eosinophils # (auto) 0.07 K/uL (0-0.5); Eosinophils % (auto) 0.7 %; Hematocrit (blood only) 37.4 % (42-52); Hemoglobin 12.8 g/dL (14.0-18.0); Immature Granulocytes # (auto) 0.02 K/uL (0.00-0.02); Immature Granulocytes % (auto) 0.2 %; Lymphocytes # (auto) 1.36 K/uL (1.2-3.4); Lymphocytes % (auto) 13.1 %; Mean Corpuscular Hemoglobin 31.8 pg (25-34); Mean Corpuscular Hgb Conc 34.2 g/dL (32-36); Mean Corpuscular Volume 92.8 fL (80-100); Mean Platelet Volume 8.7 fL (7.4-10.4); Monocytes # (auto) 0.43 K/uL (0.11-0.59); Monocytes % (auto) 4.1 %; Neutrophils # (auto) 8.51 K/uL (1.4-6.5); Neutrophils % (auto) 81.7 %; Platelet Count 224 K/uL (130-400); RDW Coefficient of Variation 14.2 % (11.5-14.5); RDW Standard Deviation 48.7 fL (36.4-46.3); Red Blood Count 4.03 M/uL (4.7-6.1); White Blood Count 10.41 K/uL (4.8-10.8)
[2020-02-14] MEDS ORDERED: PROMETHAZINE 25 MG/51 ML BAG IV STA (08:26)
[2020-02-14 08:43] LABS: Albumin Level 2.8 gm/dl (3.4-5.0); BUN Creatinine Ratio 14.3 (10-20); Calcium 9.2 mg/dl (8.5-10.1); Creatinine Clr Calc Pharmacy 75.3 ml/min; Est GFR (African American) 100.3; Est GFR (Non-African American) 86.5
[2020-02-14] MEDS: HYDROmorphone INJ 1 MG/ML SYRINGE IV PRN ×2 (08:43→10:01)
[2020-02-14 08:45] LABS: Albumin Globulin Ratio 0.8 (0.9-2); Bilirubin,Total 0.6 mg/dl (0.2-1); Globulin 3.6 gm/dl (2.5-4.0); Total Protein 6.4 gm/dl (6.4-8.2)
[2020-02-14] MEDS ORDERED: KETOROLAC 30 MG/ML VIAL IV ONE (08:49)
[2020-02-14] MEDS ORDERED: DiphenhydrAMINE HCL 50 MG/ML VIAL IV STA (08:49)
--- NOTE | 2020-02-14 09:28 | Emergency Department Note ---
ED Visit Note This patient was seen in concert with Dr. Bell and we discussed and agreed upon the history, physical, assessment and plan. See attending's note for details. Resident Activity Tracking Resident Involvement: Resident Care Provided Care Provided: Adult ED : Pancreatic cancer Qualifiers: Pancreatic malignancy location: unspecified Qualified Code(s): C25.9 - Malign ant neoplasm of pancreas, unspecified
[2020-02-14] MEDS ORDERED: NALOXONE HCL 0.4 MG/1 ML VIAL/CARP IV PRN (09:36)
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
[2020-02-14] MEDS: HYDROmorphone PCA 30 MG/30 ML IV PRN (11:44)
[2020-02-14] MEDS: SODIUM CHLORIDE 0.9% 1000ML 1,000 ML IV SCH (12:22)
[2020-02-14] MEDS ORDERED: ATROPINE SULFATE 1% OP SOLN 2 ML BTL SL PRN (13:24)
[2020-02-14] MEDS ORDERED: ONDANSETRON 4 MG OD TAB SL PRN (13:24)
[2020-02-14] MEDS ORDERED: ONDANSETRON INJ 2 MG/ML 2 ML VIAL IV PRN (13:24)
[2020-02-14] MEDS ORDERED: ACETAMINOPHEN 500 MG TAB PO PRN (13:24)
[2020-02-14] MEDS ORDERED: LORazepam 0.5 MG TAB PO PRN (13:24)
[2020-02-14] MEDS ORDERED: LORazepam 0.5 MG/1 ML VIAL IV PRN (13:24)
[2020-02-14] MEDS ORDERED: fentaNYL 100 MCG/HR TDSY TD SCH (13:45)
[2020-02-14] MEDS: CHECK FENTANYL PATCH PLACEMENT SCH ×2 (15:52→23:10)
[2020-02-14] MEDS ORDERED: CHECK FENTANYL PATCH PLACEMENT SCH (16:00)
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
[2020-02-14] MEDS ORDERED: CALCIUM CARBONATE 500 MG CHEWABLE TAB PO PRN (22:42)
[2020-02-14] MEDS ORDERED: FAMOTIDINE 20 MG in SYRINGE 3 ML IV PRN (22:42)
[2020-02-15] MEDS ORDERED: HYDROmorphone INJ 1 MG/ML SYRINGE IV STA (04:24)
[2020-02-15] MEDS ORDERED: HYDROmorphone INJ 1 MG/ML SYRINGE ONE (04:33)
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
[2020-02-15] MEDS: CHECK FENTANYL PATCH PLACEMENT SCH ×2 (08:00→16:15)
--- NOTE | 2020-02-15 08:00 | Communication Note ---
Date of Service: February 15, 2020 code 44 note on review and discussion w dr bibiana Harmon pt's pain came under control much faster than anticipated, and much more aggressive pain plan viable for home was able to be achieved much faster than expected. therefore, observation status with hindsight would have been quite appropriate
[2020-02-15] MEDS ORDERED: fentaNYL 100 MCG/HR TDSY TD SCH (09:00)
[2020-02-15] MEDS: HYDROmorphone PCA 30 MG/30 ML IV PRN (10:05)
--- NOTE | 2020-02-15 13:08 | Discharge Summary ---
Date of Service February 15, 2020 Admission HPI Per Admitting Provider This is a 74-year-old male with PMHx of CAD, PAD, s/p percutaneous intervention of the RCA, carotid stenosis (left ICA 50 to 69%), chronic anemia, leukocytosis, tobacco abuse, hypertension, sleep apnea, DM type II, HLD, BPH, and pancreatic cancer with metastasis to lung which was initially diagnosed in fall 2018 due to weight loss. Patient has been using Dilaudid 1-2 mg tablets every 6 hours at home, however only took 1 mg once yesterday due to increased dizziness, and has been using fentanyl 100 mcg patch q48. The fentanyl patch has been increased from 25 mcg to 100 mcg within the past 2 weeks due to his abdominal pain. Pt reduced his Lovenox injections to once daily because of severe abdominal pain. He took 25 units of insulin this morning and is stating that he is hungry, requesting a tray. He reports losing approximately 30 pounds over the last few months, has a poor appetite and only eats small amounts of food at that time because he starts to feel nauseous shortly afterwards. He denies any vomiting, reports diarrhea at nighttime, no constipation. He has been following with palliative care, Dr. Geiger as an outpatient. He reports being ready to , wants to be comfortable in his own home. His son and daughter are all present at bedside and discussed this with each other and are all in agreement. We will stop all unnecessary oral medications, focus towards pain control and comfort and work with case management to get home hospice set up for him. 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 Principal Diagnosis Intractable pain due to metastatic pancreatic cancer Discharge Exam Constitutional well developed and + thin; no acute distress Eyes PERRL, conjunctivae normal, anicteric sclerae ENMT external ear and nose normal, oropharynx normal Neck trachea midline, no thyromegaly Respiratory normal respiratory effort, lungs clear to auscultation Cardiovascular RRR, no murmur, no edema Gastrointestinal (Abdomen) Inspection/Auscultation: abdomen normal to inspection and normal bowel sounds; abdomen not distended Percussion/Palpation: + abdomen tender (epigastric) and abdomen soft; no guarding and abdomen not rigid Musculoskeletal no cyanosis or clubbing, extremities motor strength 5/5 Skin no rashes, warm and dry Neurologic patellar DTR's 2+ bilat, sensation intact and PERRL, EOMI, accommodation nl, no face palsy, no dysarthria Psychiatric A+Ox3, euthymic affect Lymphatic no cervical or axillary lymphadenopathy Discharge Data Allergies Allergy/AdvReac Type Severity Reaction Status Date / Time No Known Drug Allergies Allergy Verified 02/14/20 09:03 Consultations 02/14/20 08:28 Consult Palliative Care Stat 02/14/20 09:59 ED Decision to Admit Stat 02/14/20 13:24 Consult Case Management - Discharge Planning Routine Consult Case Management - Discharge Planning Routine Consult Palliative Care Routine Hospital Course (1) Pancreatic cancer: -Admit to [facility] on comfort care -Palliative consult placed, follows with Dr. Geiger as an outpatient -Start on Dilaudid BEAD INSPECTOR dosing on discharge will be continuous 0.5mg/hr with 0.3mg every 10 minutes, can be adjusted per hospice will have pump delivered at 5pm this evening , continue fentanyl 100 mcg every 48, Tylenol -Antiemetics ordered -Allow regular diet -CM to assist with set up for home hospice -Patient had already reduced Lovenox injections to once per day, will hold on further per patient request -Holding all other unnecessary medications, lab draws, imaging services, fluids in the setting of expecting end-of-life and going home on hospice. (2) CAD (coronary artery disease): -Holding all unnecessary medications in the setting of comfort care measures only (3) Diabetes mellitus: -No need for ISS-patient did take NovoLog 70/30 mix , 25 units this morning-hold on further hyperglycemics -Discussed with the family that high glucose readings is not worrisome here in the setting of end-of-life, lows would be expected if patient stops taking in oral nutrition - ie. low of 56 on chemistry panel likely due to not having eaten, and took 25 U today for glucose of 137 prior to coming to the ER. (4) Vitamin D deficiency: (5) Peripheral vascular disease: (6) Hypertension: (7) Hyperlipidemia: (8) Chronic reflux esophagitis: (9) Weight loss: (10) Tobacco abuse: (11) Osteoarthritis: (12) Sleep apnea: (13) DVT prophylaxis: - teds CODE: [id number] care measures Total Time Total Time Spent Total Time Spent (In Minutes): 25 Total Time Includes: Examination of the Patient, Discharge Planning, Medication Reconciliation and Communication With Other Providers Discharge Plan Discharge Items Patient Disposition: Hospice - Home Reason For Visit: PANCREATIC CANCER,INTRACTABLE PAIN Discharge Diagnosis: Intractable pain due to pancreatic cancer Condition on Discharge: Fair Goals: control pain, comfort care Activity: Resume your previous activity Non-emergency contact: Primary Care Provider Call non-emergency contact if: you have any medication questions, your pain is not controlled and your pain is worsening Follow-up/Referrals: Jonathan Lock MD [Primary Care Provider] - Casie Geiger MD [Physician] - (one week) Diet: Carb Consistent or DM2 Addtl Attending Provider Instructions: Pain control with Dilaudid [employer] INSPECTOR pump 0.5mg/hr continuous 0.3mg every 10 minutes dose can be adjusted by Dr. Finnegan is pain is not controlled follow up with hospice services Pending Studies at Discharge: No Stand-Alone Forms: My [facility] [employer] Medications and DC Order Prescriptions: New hydromorphone (PF)-0.9 % NaCl 30 mg/30 mL (1 mg/mL) Pt Controlled Analgesia Syring 30 mg IV PRN PRN (Reason: pain) Qty: 30 RF: 0 Continued cholecalciferol (vitamin D3) 2,000 unit tablet 4,000 units PO QAM RF: 0 (DME) insulin syringe-needle U-100 [BD Insulin Syringe Ultra-Fine] 1 mL 30 gauge x 1/2" syringe See Rx Instructions .ROUTE .MEDSUPPLY Qty: 100 RF: 5 (DME) OneTouch Verio test strips Strip See Rx Instructions .ROUTE .MEDSUPPLY Qty: 100 RF: 5 (DME) lancets [OneTouch UltraSoft Lancets] Misc See Rx Instructions .ROUTE .MEDSUPPLY Qty: 100 RF: 5 enoxaparin [Lovenox] 80 mg/0.8 mL syringe 70 mg SQ Q12H Qty: 42 RF: 5 pantoprazole 40 mg tablet,delayed release (DR/EC) 40 mg PO QAM RF: 0 hydromorphone 2 mg tablet 2 mg PO Q6H PRN (Reason: pain) Qty: 60 RF: 0 fentanyl 100 mcg/hr patch 72 hour 1 patch TD Q48H Qty: 1 RF: 0 clopidogrel 75 mg tablet 75 mg PO QAM Qty: 90 RF: 3 metoprolol succinate 100 mg tablet extended release 24 hr 100 mg PO QAM Qty: 90 RF: 3 nitroglycerin 0.4 mg tablet, sublingual 0.4 mg SL Q5M PRN (Reason: chest pain) Qty: 25 RF: 5 acetaminophen [Tylenol Extra Strength] 500 mg Tablet 1,000 mg PO Q6H PRN (Reason: Pain) RF: 0 Novolin 70/30 U-100 Insulin 100 unit/mL (70-30) suspension 25 - 30 unit SQ QAM RF: 0 polyethylene glycol 3350 17 gram/dose powder 1 g PO DAILY PRN (Reason: constipation) RF: 0 isosorbide mononitrate 30 mg Tablet Extended Release 24 Hr 30 mg PO QAM RF: 0 ferrous sulfate 325 mg (65 mg iron) tablet,delayed release (DR/EC) 325 mg PO QAM RF: 0 losartan 100 mg tablet 100 mg PO QAM RF: 0 metformin 500 mg tablet extended release 24 hr 2,000 mg PO QAM RF: 0 rosuvastatin 5 mg tablet 5 mg PO QAM RF: 0 Discharge Orders: Discharge Order (Routine); Ordered 02/15/20 Ordered By: Donavon Olvera Admission Data Admit Date/Time: 02/14/20 10:08 Attending Provider: Donavon Olvera Admit Provider: Donavon Olvera Primary Care Provider: Jonathan Lock Other Providers: Casie Geiger ; Donavon Olvera ; [facility] Coding Level of Care Code 14134 OBS Care - Discharge Diagnoses Pancreatic cancer C25.9 Pancreatic malignancy location: unspecified CAD (coronary artery disease) I25.10 Diabetes mellitus E11.9 Vitamin D deficiency E55.9 Peripheral vascular disease I73.9 Hypertension I10 Hypertension type: essential hypertension Hyperlipidemia E78.5 Chronic reflux esophagitis K21.0 Weight loss R63.4 Tobacco abuse Z72.0 Osteoarthritis M19.90 Sleep apnea G47.30 DVT prophylaxis Z29.9
[2020-02-15] MEDS: SODIUM CHLORIDE 0.9% 1000ML 1,000 ML IV SCH (15:13)
== END 2020-02-15 16:53 | disposition hospice, home (50) ==
LOC: ED 07:50 → INTOOBSV 10:08 → 3N 10:08